=== PATIENT | male | born 1955 | race Two or more races ===

== ENCOUNTER 2024-12-23 09:33 | Emergency (ER) | payer MEDICARE, SELFPAY ==
[2024-12-23 09:49] VITALS: BP 162/91; PULSE 62; RESP 18; TEMP 36.7; O2SAT 95; BMI 31.4
--- NOTE | 2024-12-23 10:00 | XR_ITS ---
Examination: Hand, right 3 views Technique: Hand AP, oblique, lateral 3 views Date and time of exam: December 23, 2024 1003 hours INDICATIONS: Patient fell this morning with injury to the right hand, right hand pain. FINDINGS: No acute fracture No dislocation No foreign body IMPRESSION: No acute fracture
[2024-12-23] MEDS: DIPHTH,PERTUSS(ACELL),TET VAC 0.5 ML SYR- ADULT IMi (10:20)
--- NOTE | 2024-12-23 10:45 | PD.EDFALL ---
ED Fall Injury RME/HPI General Chief Complaint: Fall Stated Complaint: Laceration of right finger Time Seen by Provider: 12/23/24 09:59 Arrival date/time: 12/23/24 09:33 69-year-old male presents to the emergency department today stating was working outside by the pool had a trip and fall patient reports having his face and injuring his right hand especially the right hand fourth digit. Unknown last tetanus. Patient ports no loss of consciousness no vomiting no headache dizziness or weakness Limitations: no limitations Related Data Previous Rx's ?Medication ?Instructions ?Recorded cephalexin 500 mg capsule 500 mg PO BID 7 days #14 caps 12/23/24 Allergies Allergy/AdvReac Type Severity Reaction Status Date / Time No Known Drug Allergies Allergy Verified 12/23/24 09:38 Review of Systems Musculoskeletal Musculoskeletal: Reports system reviewed and no additional complaints, except as documented, Reports arthralgias, Reports deformity and Reports joint swelling Integumentary/Breasts Skin/Breast: Reports system reviewed and no additional complaints, except as documented and Reports wounds (Abrasions to finger and hand) Past Medical History Social History SMOKING STATUS: Never smoker ED Exam General Limitations: Present no limitations General appearance: Present alert and in no apparent distress Expanded Head Exam Head image:  1. Abrasions Eye Eye exam: Present normal appearance, PERRL and EOMI ENT ENT exam: Present normal exam, normal oropharynx and mucous membranes moist Neck Neck exam: Present normal inspection, full ROM and trachea midline Chest Chest inspection: Present normal inspection and symmetric chest wall rise Respiratory Respiratory exam: Present normal lung sounds bilaterally Cardiovascular Cardiovascular exam: Present regular rate, normal rhythm and normal heart sounds Abdominal Exam Abdominal exam: Present soft and normal bowel sounds Extremities Exam Extremities exam: Present normal inspection and full ROM Back Exam Back exam: Present normal inspection and full ROM Neurological Exam Neurological exam: Present alert, oriented X3, CN II-XII intact, normal gait and reflexes normal; Absent motor sensory deficit Psychiatric Psychiatric exam: Present normal affect and normal mood Skin Skin exam: Present warm, dry and other (Facial abrasions, abrasions to hand) Course Quality Measures none Orders Category Date Time Status TDap [Obtain Tdap Consent] X1 Care 12/23/24 10:00 Completed Wound Care NOW Care 12/23/24 10:00 Completed XR hand comp RT min 3V Stat Exams 12/23/24 10:00 Completed TET,DIP/PERT AC (Adult)-Tdap [Boostrix Adult (Tdap) Med 12/23/24 10:00 Discontinued Vacc] 0.5 ml IMI .ONCE ONE Vital Signs Vital signs: Vital Signs Temperature 98.0 F 12/23/24 09:49 Pulse Rate 62 12/23/24 09:49 Respiratory Rate 18 12/23/24 09:49 Blood Pressure 162/91 H 12/23/24 09:49 Pulse Oximetry (%) 95 12/23/24 09:49 Oxygen Delivery Method Room Air 12/23/24 09:49 O2 saturation 95% room air within normal limits Procedures -ED Orthopedic Joint Reduction Joint #1: Time Out Performed: Yes Side: Right Joint Reduction Location: finger Amount of anesthesic used (mL): 0 Shoulder Technique Used (if applicable): traction/counter-traction Technique used: traction/counter-traction Post-reduction neuro exam: intact Post-reduction vascular: intact Post Reduction X-Ray Obtained: Yes Post Reduction X-Ray Results: reduced Splint Applied: Yes Patient Tolerated Procedure: well Fall MDM Narrative MDM Narrative:: 69-year-old male presents to the emergency department today stating was working outside by the pool had a trip and fall patient reports having his face and injuring his right hand especially the right hand fourth digit. Unknown last tetanus. Patient ports no loss of consciousness no vomiting no headache dizziness or weakness Exam patient well-appearing patient does not appear ill or toxic in no acute distress On exam patient appears to have a deformity of the right hand fourth digit I reduced the patient's digit without difficulty patient reports relief and he can now move his finger patient has an associated abrasion on the right finger as well Patient reports he has no headache no dizziness no weakness and patient walks with steady gait As patient reports no headache no dizziness or weakness reports fall was mechanical patient reports he does not feel he needs CT scans at this time and I do not believe he does either I got a postreduction x-ray which shows good alignment no acute fracture Patient will be treated with course of antibiotics Patient discharged home in no distress to follow-up with primary care doctor in the next 24 to 48 hours and for any worsening symptoms to return to the ER immediately Patient data External records reviewed:: [facility] previous records Clinical information provided by:: patient Social determinants that could affect healthcare access:: none Patient has the following chronic illnesses:: See history How is presenting disease/condition affected by chronic disease/condition?: uneffected by Evaluation data The following diagnostics were reviewed and interpreted by me:: radiology exam(s) Lab and/or radiology exams considered but not ordered:: Radiology obtain Interpretation Summary: Reviewed by Medications / Prescriptions Medications or Prescriptions considered but not ordered:: Given Medication administrations:: Medication Administration History Discontinued Medications Diphtheria/Tetanus/Acell Pertussis (Diphth,Pertuss(Acell),Tet Vac 0.5 Ml Syr- Adult) 0.5 ml IMi .ONCE ONE Stop: 12/23/24 10:01 Last Admin: 12/23/24 10:20 Dose: 0.5 ml Documented By: MAREN Given Consultations Consultation(s) initiated? (list below): No Diagnosis Fall Differential Diagnosis: other (Dislocation, finger fracture, closed head injury, abrasion) Most likely diagnosis given after review of the tests above:: Facial abrasions, dislocation of finger Admission Indicated Admission indicated?: not indicated Admission Request Was there a request for admission?: No Disposition Plan Disposition Plan: Discharge Discharge Attestation Discharge Attestation: The patient and all family members were given an opportunity to ask questions and understood the discharge instructions. Discharge instructions specifically effects, indications for sooner follow up or return to the emergency department, and the expected course of current diagnosis. Patient condition: Stable Discharge Plan Plan Patient Disposition: HOME (Self Care) Discharge Disposition comment: Stable Prescriptions/Referrals Prescriptions/Med Rec: New cephalexin 500 mg capsule 500 mg PO BID 7 Days Qty: 14 0RF Referrals: No Primary/Family,Physician [Primary Care Provider] - In 1 week Problem List Clinical Impression: Abrasion of face, Closed dislocation of finger of right hand Patient/Caregiver Discharge Instructions Education Materials: ED Abrasions Additional Instructions: Please follow up with your primary care doctor in the next 24-48hrs for any worsening symptoms return here immediately Print Language: Gambian Stand Alone Forms: Joselin Award Info., Patient Portal Info Letter Vaccines Vaccines Given During Stay: TDaP PA/[employer]IST Supervising Physician ALFONZO/EL Supervising Physician: dr negrete
== END 2024-12-23 10:52 | disposition home or self-care (01) ==
PROVIDERS: Emergency Provider Emergency Medicine
DX: S63.254A Unspecified dislocation of right ring finger, initial encounter (principal); S00.81XA Abrasion of other part of head, initial encounter; W01.0XXA Fall on same level from slipping, tripping and stumbling without subsequent striking against object, initial encounter; Z23 Encounter for immunization
CPT/HCPCS: 26770; 73130; 90471; 90715; 99283